=== PATIENT | male | born 1985 | race Two or more races ===

== ENCOUNTER 2024-02-07 15:14 | Emergency (ER) | payer OTHER, SELFPAY ==
[2024-02-07 15:49] VITALS: BP 117/76; PULSE 61; RESP 18; TEMP 36.6; O2SAT 96; BMI 25.8
--- NOTE | 2024-02-07 15:49 | ED.BACK ---
HPI - Back Pain/Injury General Chief Complaint: Back Pain/Injury Stated Complaint: back pain, injury at home Time Seen by Provider: 02/07/24 15:56 Source: patient, RN notes reviewed and old records reviewed Mode of arrival: ambulatory History of Present Illness ED Provider: Sheba Jesus PA-C HPI Narrative: 38-year-old male with no significant past medical history presenting to the ED complaining of left low back pain radiating down left lower extremity x1 week s/p working out and lifting barbell. Reports sudden onset of pain. Denies taking anything for pain. Denies direct injury/trauma or fall, numbness/tingling, weakness, incontinence/retention, fever MD elicited complaint: back pain and back injury Related Data Previous Rx's ?Medication ?Instructions ?Recorded acetaminophen 500 mg tablet 500 mg PO Q6H PRN fever or pain 02/07/24 (Tylenol Extra Strength) #14 tabs cyclobenzaprine 5 mg tablet 5 mg PO Q8H PRN pain (scale score 02/07/24 7-10) 5 days #14 tabs lidocaine 5 % topical patch 1 patch topical DAILY PRN pain #30 02/07/24 (Lidoderm) ea naproxen 500 mg tablet 500 mg PO BID PRN pain 10 days #20 02/07/24 tabs Allergies Allergy/AdvReac Type Severity Reaction Status Date / Time almond Allergy Difficulty Verified 02/07/24 15:56 Breathing cat dander Allergy Hives Verified 02/07/24 15:56 dog dander Allergy Hives Verified 02/07/24 15:56 hazelnut Allergy Difficulty Verified 02/07/24 15:56 Breathing kiwi Allergy Hives Verified 02/07/24 15:56 mite-Dermatophagoides Allergy Hives Verified 02/07/24 15:56 farinae, portia [dust mite - [place]] fig Allergy Hives Uncoded 02/07/24 15:56 Review of Systems Review of Systems: Constitutional: No Fever, No Chills Cardiovascular: No Chest Pain, No SOB Respiratory: No Cough Gastrointestinal: No Nausea, No Vomiting, No Abdominal pain Genitourinary: No Dysuria, No Urinary Frequency, No Hematuria, No Urinary Incontinence/retention, No Flank Pain Musculoskeletal: + joint pain, No Myalgias, No Joint Swelling Skin: No Skin Lesions, No rash Neuro: No Weakness, No Numbness, No Paresthesias Yes all other systems are reviewed and are negative Constitutional: Constitutional: Reports as per HPI Neurologic: Denies Sensory deficit (Neuro) [facility] Past Medical History Attestation statement: The following information was validated with the patient. Source: old records reviewed Social History Social History Advance Directives: No Advance Directives Information Provided: No Physical Exam Vital Signs: Vital Signs: Last Vital Signs Temp 97.9 F 02/07/24 16:14 Pulse 61 02/07/24 16:14 Resp 18 02/07/24 16:14 BP 117/76 02/07/24 16:14 Pulse Ox 96 02/07/24 16:14 O2 Del Method Room Air 02/07/24 16:14 BMI result Body Mass Index 25.8 Const: General: cooperative, healthy appearing and no acute distress Orientation/consciousness: patient oriented x3 Limitations: no limitations HEENT: Head: Yes normal to inspection and Yes atraumatic Ears: hearing grossly normal bilaterally General nose exam: Normal external nose present Face and sinus: Yes normal facial exam Eyes: General: appearance normal, both eyes and all related structures EOM: EOMs intact bilaterally Neck: Neck: Yes normal visual inspection and Yes no meningeal signs Resp: Effort & Inspection: normal respiratory effort and no respiratory distress Cardio: Rate: regular rate Peripheral pulses: Peripheral pulses 2+ throughout GI: Inspection: Yes normal to inspection Palpation (GI): Soft to palpation, nontender, no guarding and not rigid : General: Yes no CVA tenderness Back/Spine/Pelvis: Other: No midline cervical/thoracic/lumbar spinous tenderness/step-off or deformity. + left lower lumbar reproducible tenderness. No rash/erythema Back: no CVA tenderness Skin: Rashes: no rashes Wounds: no wounds Neuro: Other: Strength intact throughout. No saddle anesthesia. Sensation intact to light touch. Neurovascular intact distally General: patient oriented x3, gait normal, tone normal, moves all extremities, no meningeal signs and no focal motor deficits Cranial nerves: Yes CN's II-XII intact bilaterally Gait exam (Neuro): Normal gait present Motor exam (neuro): 5/5 motor strength present throughout Sensory Exam: No Sensory deficit (Neuro) Extrem: General: Yes normal to inspection Medical Decision Making Medical Decision Making MDM Narrative: 38-year-old male with no significant past medical history presenting to the ED complaining of left low back pain radiating down left lower extremity x1 week s/p working out and lifting barbell. On exam no signs stable, NAD, nontoxic appearing, no midline spinous tenderness or red flag symptoms. Reproducible left lower lumbar MSK tenderness. No saddle anesthesia. Concern for herniated disc vs sciatica vs MSK pain/strain. Lower suspicion for fracture. Unlikely cauda equina/cord compression or epidural abscess Plan: X-rays > however patient refused, pain control, PCP/spine follow-up Please refer to course for remaining clinical decision making, interpretation of labs/imaging results, and discussions with consultants and/or family members. Results discussed with patient including worrisome signs and symptoms and strict return precautions, and when to return to the emergency department. They verbalized understanding and feel safe for discharge at this time. Differential Diagnosis Differential Diagnoses: The differential diagnosis associated with the presentation includes As above Admission/Observation Consideration of admission/observation: Escalation of care including admission/observation considered Radiology Impression Discussion of test interpretation with radiology: I have reviewed the radiologist's reading. External Record Review External record reviewed: Inpatient record, Office record, Outpatient record, Prior outpatient labs, Prior outpatient radiology, Primary care record and Outside ED record Tests considered The following testing was considered but not selected: As above Discharge Plan Discharge Clinical Impression: Low back pain, Sciatica Patient Disposition: Home, Self-Care Instructions: Sciatica (ED), Acute Low Back Pain (ED) Additional Instructions: Your pain is likely musculoskeletal/sciatica or herniated disc you may need an MRI Flexeril is a muscle relaxer, take at night as it makes you drowsy, do not drive, drink alcohol, or operate machinery while taking it Naproxen as an anti-inflammatory / pain medication, take with food Lidoderm patches are numbing patches, apply to painful area In addition take Tylenol at home If symptoms persist or worsen, pain becomes unbearable, you developed urinary retention or incontinence, or weakness return to the ED Prescriptions: New acetaminophen [Tylenol Extra Strength] 500 mg tablet 500 mg PO Q6H PRN (Reason: fever or pain) Qty: 14 0RF lidocaine [Lidoderm] 5 % adhesive patch,medicated 1 patch topical DAILY MDD remove after 12 hours PRN (Reason: pain) Qty: 30 0RF Rx Instructions: leave on most painful area for up to 12 hrs naproxen 500 mg tablet 500 mg PO BID PRN (Reason: pain) 10 Days Qty: 20 0RF cyclobenzaprine 5 mg tablet 5 mg PO Q8H PRN (Reason: pain (scale score 7-10)) 5 Days Qty: 14 0RF Referrals: [facility] [Provider Group] [facility] [Provider Group] [facility] [Provider Group] Stand Alone Forms: Work/School Release Interventions: ED Discharge Assessment Last Done: 02/07/24 16:14 Discharge Date/Time: 02/07/24 16:14 Print Language: Israeli
[2024-02-07 16:14] VITALS: BP 117/76; PULSE 61; RESP 18; TEMP 36.6; O2SAT 96
== END 2024-03-23 16:14 | disposition home or self-care (01) ==
PROVIDERS: Emergency Provider Emergency Medicine
DX: M54.42 Lumbago with sciatica, left side (principal)
CPT/HCPCS: 99282; 99283

== ENCOUNTER 2024-04-06 13:51 | Outpatient (AMB) | payer OTHER, SELFPAY ==
[2024-04-06 13:53] VITALS: BP 130/78; PULSE 86; O2SAT 97; BMI 26.0
--- NOTE | 2024-04-06 13:53 | MHC.PC.OV ---
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 Required: No Allergies almond Allergy (Verified 04/06/24 14:06) Difficulty Breathing cat dander Allergy (Verified 04/06/24 14:06) Hives dog dander Allergy (Verified 04/06/24 14:06) Hives hazelnut Allergy (Verified 04/06/24 14:06) Difficulty Breathing kiwi Allergy (Verified 04/06/24 14:06) Hives mite-Dermatophagoides farinae, portia [dust mite - [place]] Allergy (Verified 04/06/24 14:06) Hives fig Allergy (Uncoded 04/06/24 14:06) Hives Medication List - Last Reconciled 04/06/24 by Amelia Callejas PA-C No Known Home Meds Tobacco use date assessed: 04/06/24 Dental Screening Dental Screen Date: 04/06/24 Did you have a dental visit in the last 12 months?: No Did you have a dental problem in the last 6 months where you did not have access to dental care?: No HPI establish care HPI Details 38-year-old male coming to the office for the 1st time. In review of the notes, patient was seen in [facility] ED January 2024 for back pain following lifting a heavy barbell. No imaging was done and recommended following up with retina subspecialist with the appointment tomorrow. He reports his back pain is feeling much better since initial visit and is using pain medication as needed. He has no other concerns today. [facility] Medical History (Updated 04/06/24 @ 14:34 by Amelia Callejas PA-C) Asthma Social History Housing: Apartment Patient Tobacco Use Status: Never used Tobacco service: No Current occupational status: employed Cognitive needs: No Hearing needs: No Vision needs: No Questionnaire PHQ-9 Over the last 2 weeks, how often have you been bothered by any of the following problems? 1. Little interest or pleasure in doing things: not at all 2. Feeling down, depressed, or hopeless: not at all 3. Trouble falling or staying asleep, or sleeping too much: not at all 4. Feeling tired or having little energy: not at all 5. Poor appetite or overeating: not at all 6. Feeling bad about yourself - or that you are a failure or have let yourself or your family down: not at all 7. Trouble concentrating on things, such as reading the newspaper or watching television: not at all 8. Moving or speaking so slowly that other people could have noticed. Or the opposite - being so fidgety or restless that you have been moving around a lot more than usual: not at all 9. Thoughts that you would be better off or of hurting yourself in some way: not at all Total score: 0 Source: Developed by Drs. Christiano Nelson, Shaista Alvarez, Alexander Florence and colleagues, with an educational luis from [employer]. Thrive Questionnaire Date Thrive assessed: 03/30/24 I am a: Patient What is your living situation today?: I have a steady place to live Within the past 12 months, did the food you bought not last and you didn't have the money to get more?: Sometimes True Within the past 12 months, did you worry whether your food would run out before you got money to buy more?: Sometimes True Do you have trouble paying for medicines?: No Do you have trouble getting transportation to medical appointments?: No Do you have trouble paying your heating and electricity bill?: No Do you have trouble taking care of your child, family member or friend?: No Do you have trouble with day-to-day activities such as bathing, preparing meals, shopping, managing finances, etc.?: No Are you currently unemployed and looking for a job?: No Are you interested in more education?: No Please select the resources that you would like help with: Food and Job search/training Currently or been in a relationship where the following occur: No concerns reported THRIVE Score: 2 AUDIT C Alcohol Use Questionnaire (AUDIT-C) 1. How often do you have a drink containing alcohol?: Never 2. How many drinks containing alcohol do you have on a typical day when you are drinking?: 1 or 2 (0) 3. How often do you have six or more drinks on one occasion?: Never Total Score: 0 RANDY-7 AMB Questionnaire RANDY-7 Date RANDY - 7 assessed: 04/06/24 Feeling nervous, anxious, or on edge: 0 = Not at all Not being able to stop or control worryin = Not at all Worrying too much about different things: 0 = Not at all Trouble relaxin = Not at all Being so restless that it is hard to sit still: 0 = Not at all Becoming easily annoyed or irritable: 0 = Not at all Feeling afraid as if something awful might happen: 0 = Not at all Total RANDY-7 score (0-4 normal; 5-9 mild; 10-14 moderate; 15-21 severe): 0 Source: Developed by Drs. Christiano Nelson, Shaista Alvarez, Alexander Florence and colleagues, with an educational luis from [employer]. Review of Systems Const Denies body aches, Denies fatigue, Denies fever(s), Denies frequent falls, Reports headache(s) and Denies weakness Eyes Reports no additional complaints and Denies change in vision ENT Denies dysphagia, Denies dizziness, Denies facial pain, Reports headache(s), Denies nasal congestion and Denies odynophagia Card Denies chest pain, Denies syncope, Denies irregular heart rhythm, Denies leg edema, Denies lightheadedness and Denies dyspnea Resp Denies cough and Denies dyspnea GI Denies constipation, Denies dysphagia, Denies dyspepsia, Denies diarrhea, Denies nausea, Denies odynophagia and Denies vomiting Denies dysuria, Denies urinary frequency, Denies urinary hesitancy and Denies urinary urgency Musc Denies back pain and Denies myalgias Skin/Breast Reports system reviewed and no additional complaints, except as documented Neuro Denies dizziness, Denies syncope, Denies frequent falls, Reports headache(s) and Denies weakness Psych Reports no additional complaints Endo Denies fatigue Physical exam (Primary Care) Vital Signs: Oxygen Delivery Method Room Air 04/06/24 13:53 BMI result Body Mass Index 26.0 Thrive Assessment: Date of Thrive Assessment Date Thrive assessed 03/30/24 03/31/24 11:45 Currently or been in a relationship where the following occur: No concerns reported Const General: cooperative, healthy appearing, comfortable and no acute distress Orientation/consciousness: patient oriented x3 [facility] Head: Yes normocephalic Ears: hearing grossly normal bilaterally, external ears normal, TM's normal bilaterally and Abnormal EAC present excessive cerumen bilateral General nose exam: Normal external nose present Face and sinus: Yes normal facial exam and Yes sinuses nontender Mouth: Normal oral and palatal mucosa present and tongue normal Throat: Yes posterior oropharynx normal Eyes General: appearance normal, both eyes and all related structures Conjunctivae: conjunctivae normal Pupils: Equal, round and reactive pupils present EOM: EOMs intact bilaterally and No Nystagmus present Neck Neck: Yes normal visual inspection, Yes full ROM and Yes no lymphadenopathy Chest Chest palpation & inspection: normal inspection of the chest Resp Effort & Inspection: normal respiratory effort Auscultation: clear to auscultation bilaterally, no crackles, no rales, no rhonchi, no wheezes and breath sounds present Cardio Rate: regular rate Rhythm: regular rhythm Peripheral pulses: radial pulses present and dorsalis pedis present GI Inspection: Yes normal to inspection and No Abdominal wall edema Palpation (GI): Soft to palpation, not firm and nontender Auscultation: normal bowel sounds Rectal Exam - Male: Yes deferred General: Yes no CVA tenderness Back/Spine/Pelvis Other: No pain to palpation over entire spine or paraspinal muscles. Negative straight leg raise test bilaterally Back: no CVA tenderness Skin General skin exam: no rashes or lesions noted Neuro General: patient oriented x3 Cranial nerves: Yes Equal, round and reactive pupils present, Yes Midline tongue present, Yes Ability to bilaterally elevate shoulders present and No Nystagmus present Gait exam (Neuro): Normal gait present Extrem General: Yes normal to inspection, Yes full ROM, No no pedal edema and No edema Psych Speech and movement: Normal speech and movement present Affect: normal affect Insight: Good insight present (Psych) Judgement: Good judgement present (Psych) Office Procedures Cerumen Removal From which ear canal was the cerumen removed: bilateral Removal: otoscope w/curette Notes: patient tolerated procedure well, no complications and ear canal clear [id number] Wax Removal by Spoon/Curette Coding Level of Care Code New Pt Prev Care 40-64y(42756) Diagnoses Back strain S39.012A Annual physical exam Z00.00 Excessive cerumen in both ear canals H61.23 CPT Codes Office Procedure - CPT: 43502-Qpb Wax Removal by Spoon/Curette ([id number]) Assessment & Plan Assessment & Plan (1) Back strain: Code(s): S39.012A - Strain of muscle, fascia and tendon of lower back, initial encounter Category: Medical Plan: Patient was seen in [facility] ED 2 months ago for low back pain and is scheduled to see pain management tomorrow. He would like to return to work discussed we will put him back to work pending evaluation from retina subspecialist. (2) Annual physical exam: Code(s): Z00.00 - Encounter for general adult medical examination without abnormal findings Category: Medical Plan: Patient is up-to-date on all recommended routine screenings for his age. Updated blood work ordered. Not up-to-date on tetanus vaccine which was declined at this visit. We will follow up in 1 year or sooner pending blood work or if new problems arise. (3) Excessive cerumen in both ear canals: Code(s): H61.23 - Impacted cerumen, bilateral Category: Medical Plan: Advised to avoid Q-tips or tissue in the ears. Cerumen was removed bilaterally with lighted curette patient tolerated procedure well and bilateral TMs were visualized as intact with aerated middle ear spaces. Plan This note was constructed using voice recognition software. While every effort has been made to ensure accuracy and transfer driver, still areas may have been included sometimes these areas may affect the content or meeting of the given symptoms. Total time spent caring for the patient today was 30 minutes. This includes time spent before the visit reviewing the chart, time spent during the visit, and time spent after the visit and documentation. Orders: Orders Comprehensive Met. Panel Today Z00.00 - Encounter for general adult medical examination without abnormal findings Free T4 (Free Thyroxine) Today Z00.00 - Encounter for general adult medical examination without abnormal findings TSH reflex Free T4 Today Z00.00 - Encounter for general adult medical examination without abnormal findings Vitamin B12 and Folate Today Z00.00 - Encounter for general adult medical examination without abnormal findings Complete Blood Count Auto Diff Today Z00.00 - Encounter for general adult medical examination without abnormal findings Vitamin D 25-OH (D2 and D3) Today Z00.00 - Encounter for general adult medical examination without abnormal findings Lipid Panel Today Z00.00 - Encounter for general adult medical examination without abnormal findings
== END 2024-04-06 14:31 | disposition home or self-care (01) ==
DX: Z00.00 Encounter for general adult medical examination without abnormal findings (principal); S39.012A Strain of muscle, fascia and tendon of lower back, initial encounter; H61.23 Impacted cerumen, bilateral

== ENCOUNTER → 2024-04-06 13:51 | Outpatient (BNVA) | payer OTHER, SELFPAY | DX: Z00.01 Encounter for general adult medical examination with abnormal findings (principal); H61.23 Impacted cerumen, bilateral; S39.012D Strain of muscle, fascia and tendon of lower back, subsequent encounter | CPT/HCPCS: 69210; 96127 ==

== ENCOUNTER 2024-04-07 14:18 | Outpatient (AMB) | payer OTHER, SELFPAY ==
--- NOTE | 2024-04-07 14:20 | MHC.OFFVIS ---
Vital Signs 04/07/24 14:23 Height 5 ft 7 in Weight 166 lb BMI 26.0 BP 125/78 Blood Pressure Location Lt brachial Position Sitting Pulse 69 Pulse Source Pulse Oximeter Pulse Oximetry (%) 99 Oxygen Delivery Method Room Air Intake Visit Reasons: Low Back Pain/ED Referral Intake Note: Pain today 0/10 Habilitation Assistant Required: No Accompanied by: Self / Same As Patient Allergies almond Allergy (Verified 04/06/24 14:06) Difficulty Breathing cat dander Allergy (Verified 04/06/24 14:06) Hives dog dander Allergy (Verified 04/06/24 14:06) Hives hazelnut Allergy (Verified 04/06/24 14:06) Difficulty Breathing kiwi Allergy (Verified 04/06/24 14:06) Hives mite-Dermatophagoides farinae, portia [dust mite - [place]] Allergy (Verified 04/06/24 14:06) Hives fig Allergy (Uncoded 04/06/24 14:06) Hives Medication List - Last Reconciled 04/07/24 by DEANA Diaz acetaminophen (Tylenol Extra Strength) 500 mg PO Q6H PRN cyclobenzaprine 5 mg PO BEDTIME PRN lidocaine 5% 1 patch topical DAILY 30 days naproxen 500 mg PO BID PRN HPI HPI Low Back Pain/ED Referral: Details: Patient is a pleasant 38 years old male presents today status post ER visit on 02/07/24 due to back injury and sudden left lower back pain radiating down the left lower extremity for one week after working out in gym and lifting barbell. Patient reports currently he does not have any pain. He was treating his symptoms with Tylenol, NSAIDs and cyclobenzaprine, which he last took in February. Denies any pain for the past 2 weeks. 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 Most recently his mild back pain has been on right side without radiation into lower extremities. Denies previous spine injections or surgery. To this point, patient did not complete any dedicated conservative treatment, including PT and spine xrays since onset of back pain. He would like to pursue physical therapy. Denies any fever, chills, abdominal or groin pain, weight loss, weakness, foot drop, bladder or bowel dysfunction or saddle anesthesia. Location: Lower back pain on the right side Duration: Acute back pain on 02/07/24, has been better since then Characteristics of symptom or complaint: Stabbing, aching Aggravating or associated factors: doesnt have pain anymore gym, prolonged standing or walking, lifting Relieving factors: Rest, avoiding gym or heavy lifting, medications, heat/hot showers Treatment: ER visit 02/07/24 [facility] Medical History (Updated 04/07/24 @ 14:45 by EDANA Diaz) Asthma Social History Housing: Apartment Patient Tobacco Use Status: Never used Tobacco service: No Current occupational status: employed Cognitive needs: No Hearing needs: No Vision needs: No Review of Systems Const All systems reviewed & are unremarkable except as noted in HPI and below Physical Exam Vital Signs: Last Vital Signs Pulse 69 04/07/24 14:23 BP 125/78 04/07/24 14:23 Pulse Ox 99 04/07/24 14:23 Oxygen Delivery Method Room Air 04/07/24 14:23 BMI result Body Mass Index 26.0 General: Appears afebrile. No acute distress. Alert and oriented. Mood and affect appropriate. Follows and participates in conversation appropriately. Respiratory effort is unlabored. No cough. Able to transition from sit to stand unassisted. Ambulates with bilaterally normal heel strike and toe off. General: Yes no CVA tenderness Back/Spine/Pelvis Other: Patient is able to walk and stand on heels and tip toes with no difficulties demonstrating good motor tone. No limping. Can flex forward to 80-90 degrees and extend to 5-10 degrees without experiencing significant lumbar pain. Demonstrates 5/5 strength of quadriceps bilaterally as well as flexion/dorsiflexion of bilateral feet against resistance. 2+ pedal pulses bilaterally. Seated straight leg rise with dorsiflexion negative bilaterally. +1 patellar and achilles reflexes bilaterally. Facet loading test positive bilaterally. Julio César sign, Bravo?s, Pelvic compression and Stinchfield tests are negative bilaterally. No groin pain with I/E hip rotations. Valsalva maneuver negative. Mild leg discrepancy noted, right slightly longer than left. Back: no CVA tenderness Cervical Spine: cervical ROM normal, No cervical muscular tenderness and No Cervical spine tenderness Thoracic/Lumbar Spine: thoracic and lumbar spine normal to inspection, No Thoracic/lumbar spine scar(s), thoraco-lumbar ROM normal, Lasegue's sign negative, straight leg raise negative bilaterally, No thoracic spinal tenderness and No lumbar spinal tenderness Pelvis: no buttock tenderness and no sciatic notch tenderness Sacroiliac joints: bilaterally nontender Results Reviewed Results Reviewed: No imaging results are available for review today. Assessment & Plan Assessment & Plan (1) Low back pain: Code(s): M54.50 - Low back pain, unspecified Category: Medical (2) Muscle spasm of back: Code(s): M62.830 - Muscle spasm of back Category: Medical (3) Low back pain: Code(s): M54.50 - Low back pain, unspecified Category: Medical (4) Back strain: Code(s): S39.012A - Strain of muscle, fascia and tendon of lower back, initial encounter Category: Medical Plan Recommend formal physical therapy as initial steps to address acute low back pain s/p back injury in January. Script provided. Lumbar spine imaging to assess degree of degenerative changes, any subluxation, listhesis, compression fractures or pars defects. Lidocaine patches script provided to patient as he was not able to fill these s/p ER visit. All questions and concerns have been answered and patient agreed with the treatment plan. Follow-up after PT/x-ray results and sooner as needed. Orders: Orders PT Evaluation and Treatment Today M54.50 - Low back pain, unspecified, M62.830 - Muscle spasm of back XR lumbar spine 4V min Today M54.50 - Low back pain, unspecified, M62.830 - Muscle spasm of back Medications: New lidocaine 5% 1 patch topical DAILY 30 days 30 ea 0RF pain M54.50 - Low back pain, unspecified, M62.830 - Muscle spasm of back Coding Level of Care Code New Pt Level 3 (96822) Complex EM visit Add On G2211 Diagnoses Low back pain M54.50 Muscle spasm of back M62.830 Back strain S39.012A
[2024-04-07 14:23] VITALS: BP 125/78; PULSE 69; O2SAT 99; BMI 26.0
== END 2024-04-07 15:13 | disposition home or self-care (01) ==
PROVIDERS: Visit Provider Nurse Practitioner Family
DX: M54.50 Low back pain, unspecified (principal); M62.830 Muscle spasm of back; S39.012A Strain of muscle, fascia and tendon of lower back, initial encounter
CPT/HCPCS: 99203

== ENCOUNTER → 2024-04-07 14:18 | Outpatient (BNVA) | payer OTHER, SELFPAY | PROVIDERS: Visit Provider Nurse Practitioner Family ==

== ENCOUNTER 2024-04-29 07:59 | Outpatient (RCR) | payer OTHER, SELFPAY ==
--- NOTE | 2024-04-29 08:39 | MHC.PT.EP ---
[facility] [place] [facility] [place] [facility] [place] [facility] [address] [phone] F: [phone] F: [phone] F: [phone] F: [phone] Physical Therapy Plan of Care Date of Evaluation: 04/29/24 Date of Surgery: Diagnosis: LBP, unspecified muscle spasm of back Assessment: 38 y/o male referred to PT with low back pain and muscle spasm. He injured his low back lifting weights at gym in mid-January resulting in difficulty with all movement such as dressing, walking, sitting, rolling in bed. However he has been pain free for 6-8 weeks and returned to gym regime and ADL's without pain. Examination shows lumbar/ hip ROM WNL, strength BLE WNL, normal sensation, negative SLR/ SANDER/ SLump, normal HS/quad length, and good squat mechancis. At this time, PT is not indicated as his impairments and functional limitations have improved on their own. Pt in agreement. Frequency and Duration: The patient will be seen Short Term Goals: Prison Goals: PT not indicated, d/c Treatment Plan: Modalities to reduce pain, spasms and effusion. Manual therapy to restore motion and function. Therapeutic exercise to improve strength and flexibility. Neuromuscular re-education for posture and balance. Therapeutic activities to return to functional activities of daily living. Electronically signed by: Arminda Garcia PT Please sign and return to therapist. Thank you for your referral.
--- NOTE | 2024-04-29 08:40 | MHC.PT.DC ---
[facility] [place] [facility] [place] [facility] [place] [facility] [address] Ariela Rodriguez [address] [phone] F: [phone] F: [phone] F: [phone] F: [phone] Physical Therapy Discharge Report Diagnosis: LBP, unspecified muscle spasm of back Date of Surgery: Date of Evaluation: 04/29/24 Date of Discharge: 04/29/24 Treatments to Date: 1 Cancellations to Date: 0 No Shows to Date: 0 Discharge Status: Discharge Summary: 38 y/o male referred to PT with low back pain and muscle spasm. He injured his low back lifting weights at gym in mid-January resulting in difficulty with all movement such as dressing, walking, sitting, rolling in bed. However he has been pain free for 6-8 weeks and returned to gym regime and ADL's without pain. Examination shows lumbar/ hip ROM WNL, strength BLE WNL, normal sensation, negative SLR/ SANDER/ SLump, normal HS/quad length, and good squat mechancis. At this time, PT is not indicated as his impairments and functional limitations have improved on their own. Pt in agreement. Electronically signed by: Arminda Garcia PT Please sign and return to therapist. Thank you for your referral.
== END 2024-04-29 08:40 | disposition home or self-care (01) ==
LOC: HO.PT 07:59
PROVIDERS: Visit Provider Nurse Practitioner Family
DX: M54.50 Low back pain, unspecified (principal); M62.830 Muscle spasm of back
CPT/HCPCS: 97161